=== PATIENT | female | born 1985 | race Caucasian/White ===

== ENCOUNTER 2022-04-03 15:42 | Emergency (ER) | payer OTHER ==
[2022-04-03] MEDS ORDERED: Prochlorperazine 10 MG/2 ML SDV IVPUSH STA (16:50)
[2022-04-03] MEDS ORDERED: Acetaminophen 325 MG Tab PO STA (16:50)
[2022-04-03] MEDS ORDERED: Ketorolac 30 MG/ML SDV IVPUSH STA (16:50)
[2022-04-03] MEDS ORDERED: Lactated Ringers 1,000 ML IV ONE (16:50)
== END 2022-04-03 19:10 | disposition home or self-care (01) ==
LOC: MW.ED 15:42
DX: G43.909 Migraine, unspecified, not intractable, without status migrainosus (principal); U07.1 COVID-19
CPT/HCPCS: 87635; 96374; 96375; 99283; A9270; J0780; J1885; J7120; 99284; U0002